=== PATIENT | female | born 1945 | race Caucasian/White ===

== ENCOUNTER 2016-10-28 07:12 | Day surgery (SDC) | payer MEDICARE ==
[2016-10-28] VITALS (10 sets, daily range): BP systolic 106–146; BP diastolic 49–76; PULSE 69–100; RESP 11–19; O2SAT 97–100
[~2016-10-28] VITALS: Ht 163.2 cm; Wt 63.5 kg
[~2016-10-28 07:12] MED LIST: ACET325C PO; BISA10SU61 RC; DOCU250C2 PO; DONE10TA5 PO; DOXY100T2 PO; FLUT9.9S NS; LAMO150T2 PO; LEVO137T2 PO; LORA0.5T PO; MAGN400O4 PO; PEPTO-BISMOL PO; QUET25TA73 PO; REGULOID PO; SENN-133 PO; VIT1TABL83 PO
[2016-10-28] MEDS ORDERED: fentaNYL-PF 50 mCg/mL 2 mL Inj ONE (07:13)
[2016-10-28] MEDS ORDERED: Remifentanil 1 mg/3 mL Inj ONE (07:13)
[2016-10-28] MEDS ORDERED: EPHEDrine/NS 5 mg/mL 5 mL Syringe ONE (07:13)
[2016-10-28] MEDS ORDERED: Propofol 10,000 mCg/mL 20 mL Inj ONE (07:13)
[2016-10-28] MEDS ORDERED: Rocuronium 10 mg/mL 5 mL Inj ONE (07:13)
[2016-10-28] MEDS ORDERED: Glycopyrrolate 0.2 MG/ML 1mL Inj ONE (07:13)
[2016-10-28] MEDS ORDERED: Neostigmine 1 mg/mL 10 mL Inj ONE (07:13)
[2016-10-28] MEDS ORDERED: Ondansetron 2 mg/mL 2 mL Inj ONE (07:13)
[2016-10-28] MEDS: Lactated Ringer's 1,000 ML IV SCH ×2 (07:20→08:28)
[2016-10-28] MEDS ORDERED: Bupivacaine-MPF 0.25%/EPI 30 mL Inj NERVEBLOCK ONE (08:56)
--- NOTE | 2016-10-28 08:56 | PCM.HPANE ---
Patient Data Surgeon Admitting Provider: Attending Provider:Brad Rizzo MD Primary Care Physician:Trish Barr MD Other Provider:[facility] Reason for Visit Hyperparathyroidism Ht/WT & BMI Height (Feet): 5 Height (Inches): 4.25 Weight (Kilograms): 63.503 Body Mass Index 23.00 Allergies Coded Allergies: carbamazepine (Verified Allergy, Severe, hives, 10/26/16) Past Anesthesia History Anesthesia History: Denies:: Abnormal Airway, Anesthesia Reactions, Difficult Intubation, Fam Anesthesia Reaction, Fam Malignant Hypertherm, Malignant Hyperthermia Diabetes History Hx Diabetes?: No MRSA MRSA: No Medications Home Meds Incl Beta Awa: No Reported Medications [Reguloid Powder] No Conflict Check1 Tbs PO DAILY 10/27/16 Acetaminophen 325 Mg Hvsdqmu175 Mg PO Q4H PRN PRN 10/26/16 Sennosides (Senna)8.6 Mg Tablet8.6 Mg PO HS PRN For Constipation 10/26/16 [Pepto-Bismol] No Conflict Check30 Ml PO PRN MR X1 10/26/16 Fluticasone Propionate (Flonase Allergy Relief)50 Mcg/Actuation [place].susp9.9 Ml NS BID 10/26/16 Bisacodyl (Dulcolax Rectal)10 Mg Supp.rect10 Mg RC DAILY PRN For Constipation 30 Days Ref 0 10/26/16 Doxycycline Hyclate 100 Mg Trmbry668 Mg PO DAILY 10/26/16 Donepezil (Aricept)10 Mg Intgdz47 Mg PO BID Ref 0 10/26/16 Magnesium Hydroxide (Milk of Magnesia)400 Mg/5 Ml Oral.susp30 Ml PO HS PRN For Constipation 10/26/14 Lorazepam 0.5 Mg Tablet0.5 Mg PO TID PRN For Anxiety Ref 0 10/26/14 Quetiapine Fumarate 25 Mg Uchsha87 Mg PO TID 30 Days Ref 0 TAKES 25MG AM & PM; 12.5MG @ LUNCH 10/26/14 Lamotrigine 150 Mg Ficcuc782 Mg PO BID 30 Days Ref 0 10/26/14 Docusate Sodium 250 Mg Uwibrxl704 Mg PO BID PRN For Constipation 30 Days Ref 0 10/26/14 Vit B Comp/C/FA/Iron/Vit E (Vitamin B Complex Tablet)1 Each Tablet1 Each PO DAILY 10/26/14 Levothyroxine 137 Mcg Wxgpye110 Mcg PO DAILY 30 Days Ref 0 10/26/14 Discontinued Reported Medications [Nutrisource Fiber] No Conflict Check1 Pkt PO DAILY 10/26/16 Metronidazole (Metronidazole Cream)45 Gm Cream..g.1 Applic TP BID #45 GM Ref 0 0.75% 10/26/16 Phenylephrine HCl/Acetaminophn (Mapap Sinus Caplet)1 Each Tablet1-2 Each PO HS 10/26/16 Ibuprofen 200 Mg Vjeqlco318 Mg PO QID PRN For Pain Ref 0 10/26/16 Cholecalciferol (Vitamin D3) (Vitamin D)50,000 Unit Hmnsamz73,000 Unit PO WEEKLY 10/26/16 Atorvastatin (Lipitor)20 Mg Hpwujv39 Mg PO DAILY Ref 0 10/26/16 Ceramides 1,3,6-11 (Cerave)453 Gm Cream..g.453 Gm TP BID PRN for body 10/26/14 Emollient Combination No.40 (Cetaphil)226 Gm Jetunz961 Gm TP PRN PRN use for bath 10/26/14 Sennosides (Senna Lax)8.6 Mg Tablet8.6 Mg PO PRN PRN For Constipation 10/26/14 Fluticasone Propionate (Flonase Nasal)16 Gm [place].susp2 Sprays NS BID #16 GM Ref 0 10/26/14 Bisacodyl 5 Mg Tablet.dr10 Mg PO DAILY PRN For Constipation 30 Days 10/26/14 Bisacodyl (Bisacodyl Rectal)10 Mg Supp.rect10 Mg RC DAILY PRN For Constipation 30 Days Ref 0 10/26/14 Psyllium Seed (with Sugar) (Reguloid Powder [place])369 Gm Snpxdf539 Gm PO DAILY PRN For Constipation 10/26/14 Acetaminophen (Mapap)500 Mg Tablet1-2 Mg PO HS PRN For Pain 10/26/14 Lorazepam 0.5 Mg Tablet0.5 Mg PO HS PRN For Insomnia Ref 0 10/26/14 Donepezil 5 Mg Ekmyel10 Mg PO HS Ref 0 10/26/14 History History of ENT Problems?: Yes HEENT History: Positive for:: Cataracts Sinus Problem (rosacea; per [facility] records) Denies:: Abnormal Airway Difficult Intubation Dysphagia Hearing Problem Teeth Condition: Tooth Decay Hx of Heart Problems?: Yes Cardiovascular History: Denies:: Heart Murmur Hypertension (HYPERLIPIDEMIA) Hx of Respiratory Problem?: No Respiratory History: Denies:: Use of C-PAP Machine Hx Neurologic Problems?: Yes Neurological History: Positive for:: Dementia (pt is disoriented) Seizures (remote hx of) Denies:: Alzheimer's Disease CVA Dizziness Headaches Parkinson's Disease ( tremor) Hx of GI Problems?: Yes Gastrointestinal History: Denies:: Diverticulitis (DIVERTICULOSIS) Rectal Bleeding (HX HEMORRHOIDS) Other GI Pertinent History: HX OF INTENTIONAL WEIGHT LOSS Hx of Problems?: Yes Genitourinary History: Positive for:: Urinary Tract Infection Denies:: Kidney Stones Female Hx: Positive for:: Problems with Breasts? (lump fibrous removed lt breast now in rt breast) Denies:: Currently Endometriosis Pelvic Inflammatory Skin History: Positive for:: History Skin Disorders? (rosacea) Denies:: Pressure Ulcers Hx Musculoskeletal Problems?: Yes Musculoskeletal History: Positive for:: Fibromyalgia Denies:: Joint Replacement Musculoskeletal Trauma Osteoarthritis (OSTEOPOROSIS) Hx of Psycho/Social Problems?: Yes Psycho Social History: Positive for:: Anxiety Bipolar Disorder Hx Depression (AFFECTIVE DISORDER, MANIC) Denies:: Suicide Attempt Hx Surgeries?: Yes (HYSTERECTOMY) Hx Any Other Health Problems?: Yes Other History: Positive for:: Hospitalization (psych problems) Thyroid Disease (HYPOTHYROID HYPERPARATHYROIDISM=CURRENT PROBLEM) Denies:: Cancer History Blood Transfusions: Denies:: Blood Transfuse Reaction Blood Transfusions Hx Diabetes: No Hx Alcohol Use: YesAlcoholic Drinks Per Day: 2 BEERS/WEEKHx Substance Use: Yes (REMOTELY) Smoking Status: Former Smoker Have You Smoked inLast 12 mo: No Stop/Bang S-Snoring: Do You Snore Loudly: No T-Tired: feel tired, fatigued: No O-Obsered: Observed not breath: No P-Blood Pressure: treated: No B- Body Mass Index > 35 kg/m2: No A- Age over 50: Yes N- Neck Large Circumference: No G- Gender Male: No DOMONIQUE Total Score: 1 Risk Assessment Category Category 1A: Patient has history of documented sleep apnea, and HAS NOT received any narcotic, sedative or anesthesia administration during this stay. Category 1B: Patient has history of documented sleep apnea, and HAS received any narcotic , sedative or anesthesia administration during this stay Category 2: Patient has SUSPECTED Obstructive Sleep Apnea, and HAS received any narcotic , sedative or anesthesia administration during this stay. Category 3: Patient has SUSPECTED Obstructive Sleep Apnea and HAS NOT received narcotic, sedative or anesthesia administration during this stay. Category 4: Outpatient in Procedural Areas with known sleep apnea or who screen positive for High Risk via the STOP/BANG questionnaire. Exam Exam Vital Signs Vital Signs Date Time Temp Pulse Resp B/P Pulse Ox O2 Delivery O2 Flow Rate FiO2 10/28/16 07:56 35.8 70 16 108/62 99 Room Air General Appearance: Alert, Oriented X3, Cooperative, No Acute Distress HEENT/AIRWAY: MP 2 Lungs: Clear to Auscultation, Normal Air Movement Heart: Exam Unremarkable, Regular Rate/Rhythm, No Murmurs/Rubs/Gallops Meds/Labs/Diagnostics Admission Meds Current Medications Lactated Ringer's (Lr) 1,000 ml @ 120 mls/hr Q8H20M IV Last administered on t 07:20; Start 10/28/16 at 05:00; Stop 10/28/16 at 13:19 Plan Impression Patient chart reviewed, patient interviewed and anesthestic plan with risks, benefits, and alternatives discussed, and informed consent obtained. NPO Status: 10/27 1799 ASA Physical Status: ASA2 Mod Systemic Disease Anesthetic Plan: GA Bene/Risks/Altern/Consents: Yes HP Complete Prior to Induction: Yes Other patient evaluated prior to coming to the OR. preop form signed after patient brought to the OR suite Manny Pena MD Oct 28, 2016 08:56
[2016-10-28] MEDS ORDERED: Lactated Ringer's 1,000 ML IV SCH (09:06)
[2016-10-28] MEDS ORDERED: Lactated Ringer's 500 ML IV PRN (09:06)
[2016-10-28] MEDS ORDERED: HYDROmorphone 1 mg/mL Inj IVPUSH PRN (09:10)
[2016-10-28] MEDS ORDERED: EPHEDrine Sulfate 50 mg/mL Inj IVPUSH PRN (09:10)
[2016-10-28] MEDS ORDERED: Phenylephrine 10,000 mCg/mL Inj IVPUSH PRN (09:10)
[2016-10-28] MEDS ORDERED: Ondansetron 2 mg/mL 2 mL Inj IVPUSH PRN (09:10)
[2016-10-28] MEDS ORDERED: Labetalol 5 mg/mL 4 mL Inj IV PRN (09:10)
[2016-10-28] MEDS ORDERED: MetoCLOpramide 5 mg/mL 2 mL Inj IVPUSH PRN (09:10)
[2016-10-28] MEDS ORDERED: Atropine 0.4 mg/mL Inj IVPUSH PRN (09:10)
[2016-10-28] MEDS ORDERED: fentaNYL-PF 50 mCg/mL 2 mL Inj IVPUSH PRN (09:10)
[2016-10-28] MEDS ORDERED: Dexamethasone 4 mg/mL Inj IVPUSH PRN (09:10)
--- NOTE | 2016-10-28 10:14 | PCM.ANEP1 ---
Post Anesthesia Phase 1 PACU Phase 1 Assessment Vital Signs Vital Signs Date Time Temp Pulse Resp B/P Pulse Ox O2 Delivery O2 Flow Rate FiO2 10/28/16 10:05 70 14 128/66 100 Nasal Cannula 2 10/28/16 10:00 100 17 122/70 99 Nasal Cannula 2 10/28/16 09:55 36.4 99 19 128/66 99 Nasal Cannula 2 10/28/16 07:56 35.8 70 16 108/62 99 Room Air Anesthetic Administered: GA Level of Alertness: Sleepy, easy to arouse COONEY's with Equal Strength: Yes Pain: No Nausea or Vomiting: No Oxygen Delivery: Room Air Lungs: Clear to Auscultation, Normal Air Movement Dermatome Level: Full Sensation Manny Pena MD Oct 28, 2016 10:13
--- NOTE | 2016-10-28 10:27 | OP ---
[address] [address] OPERATIVE REPORT PATIENT: BRISEIDA GARCIA : 1945 MR#: [id number] ADMIT: 10/28/2016 JOB ID: [id number] DATE OF SURGERY: 10/28/2016 ANESTHESIA: General. PREOPERATIVE DIAGNOSIS(ES): Primary hyperparathyroidism. POSTOPERATIVE DIAGNOSIS(ES): Primary hyperparathyroidism. OPERATION: Minimally invasive parathyroidectomy using gamma probe for confirmation. SURGEON: Brad Rizzo MD. PHYSICAL EDUCATION AIDE: Alvin Bryson PA-C (the first assistant was required for the safe and timely completion of the case) and GABRIEL Mchugh. COMPLICATIONS: None. ESTIMATED BLOOD LOSS: Minimal. CONDITION: Satisfactory. SPECIMEN: Right superior parathyroid adenoma. FINDINGS: There was an approximately 575 mg parathyroid adenoma in the expected location for distended right superior gland. Background gamma reading was 300. Ex vivo count was 99, confirming that this represented an adenoma. INDICATIONS/SIGNIFICANT HISTORY: The patient is a 71-year-old female with a history of diffuse osteoporosis and elevated calcium and parathyroid hormone. Preoperative localization studies including a sestamibi scan and 40 cc suggested a distended right superior adenoma. OPERATIVE TECHNIQUE: In the preop holding area the patient received a 10 millicurie sestamibi injection. She was then brought back to the operating room and placed in supine position. General anesthesia was administered, and the neck was prepped and draped in a standard surgical fashion. A procedure pause performed. I began with a 2 cm transverse incision a couple centimeters below the cricoid cartilage. Dissection was carried down through the skin and subcutaneous tissue. Local anesthetic had been injected. Superior and inferior subplatysmal flaps were then elevated. The right strap muscles were then sequentially elevated. I took some inferior pole vessels and then was able to reflect the inferior pole of the thyroid medially and dissect posterior to this in the tracheoesophageal groove. A small nodule characteristic in appearance for an adenoma was identified. This was gently dissected free. There was a single vascular pole at the superior end which was taken with bipolar cautery. The recurrent laryngeal nerve was not identified or encountered. After taking the vascular pedicle, the adenoma was removed. Prior to removal, I obtained background gamma probe readings. Ex vivo readings were then obtained, confirming the diagnosis. The surgical bed was inspected and found to be hemostatic. The strap muscles were reapproximated using running 3-0 Vicryl. Platysma was reapproximated with interrupted 3-0 Vicryl. Skin was closed using 4-0 Monocryl. Dermabond was applied. The entire procedure was well tolerated without complication.
--- NOTE | 2016-10-28 11:35 | PCM.ANEP2 ---
Post Anesthesia Evaluation ASA/CMS Post Anesthesia VS in Patient's Normal Range?: Yes Resp Stable; Airway Patent?: Yes CV Function & Hydration Stable: Yes Mental Status Recovered?: Yes Pain control Satisfactory?: Yes N/V Control Satisfactory?: Yes Manny Pena MD Oct 28, 2016 11:35
--- NOTE | 2016-10-28 13:55 | DRSVH ---
PROCEDURE: NM PARATHYROID INJECTION ONLY INDICATIONS: HYPERPARATHYROID COMPARISON: None. Technique: 10.6 mCi of technetium 99m labeled sestamibi was administered intravenously. No imaging pe rformed. IMPRESSION: Radiotracer administration for intraoperative localization of parathyroid glands. Dictated by: Szuette Armas MD, PhD on 10/28/2016 at 13:51 Approved by: Suzette Armas MD, PhD on 10/28/2016 at 13:53
--- NOTE | 2016-11-01 15:02 | PATH ---
SURGICAL PATHOLOGY Attending Physician:Brad Rizzo MD CASE STATUS: Signed Out PATIENT NAME: BRISEIDA GARCIA PID: [id number] : 1945 DATE COLLECTED:10/28/2016 16:43 SPECIMEN: Parathyroid Gland CLINICAL HISTORY: HYPERPARATHYROIDISM 1). RIGHT SUPERIOR PARATHYROID ADENOMA FINAL DIAGNOSIS: 1.RIGHT SUPERIOR PARATHYROID: PARATHYROID ADENOMA. NO EVIDENCE OF MALIGNANCY. ICD10 CODE D35.1 GROSS DESCRIPTION: The specimen is received in formalin, labeled with the patient's name, sublabeled as right superior parathyroid adenoma and consists of a whalen-yellow rubbery parathyroid gland (0.7 g, 2.2 x 1.1 x 0.6 cm). The cut surface is lobular and homogenous. No nodules, masses or lesions are identified. Section code: (A) parathyroid gland, trisected. Specimen entirely submitted. 10/29/16 JM MICRO DESCRIPTION: See diagnosis. ICD-9 CODES: CPT CODES: 1: 54267 Electronically Signed Out Babatunde Ortiz MD [facility] [address], [place] [address] Technical component performed at [facility], [address] [place] [address] Ave[address], [place], [address]
== END 2016-10-28 23:59 | disposition home or self-care (01) ==
LOC: SAS 07:12
PROVIDERS: ATTEND General Practice
DX: E21.3 Hyperparathyroidism, unspecified (principal); I10 Essential (primary) hypertension; E78.5 Hyperlipidemia, unspecified; G40.909 Epilepsy, unspecified, not intractable, without status epilepticus; K57.30 Diverticulosis of large intestine without perforation or abscess without bleeding; F41.9 Anxiety disorder, unspecified; F31.9 Bipolar disorder, unspecified; F03.90 Unspecified dementia, unspecified severity, without behavioral disturbance, psychotic disturbance, mood disturbance, and anxiety; M79.7 Fibromyalgia; Z87.891 Personal history of nicotine dependence
CPT/HCPCS: 36415; 60500; 78808; 82310; 83970; A9500; J2405; J2710; J3010; J7120